=== PATIENT | female | born 1995 | race African-American/Black ===

== ENCOUNTER 2022-03-12 13:45 | Day surgery (SDC) | payer OTHER | END 2022-03-12 16:05 | disposition home or self-care (01) | LOC: CSHLD/OP 13:45 | PROVIDERS: ATTEND Student in an Organized Health Care Education/Training Program | DX: Z01.89 Encounter for other specified special examinations (principal); O99.213 Obesity complicating pregnancy, third trimester; E66.01 Morbid (severe) obesity due to excess calories; O24.410 Gestational diabetes mellitus in pregnancy, diet controlled; O99.333 Smoking (tobacco) complicating pregnancy, third trimester; F17.210 Nicotine dependence, cigarettes, uncomplicated; Z3A.34 34 weeks gestation of pregnancy | CPT/HCPCS: 99281 ==

== ENCOUNTER 2022-03-19 09:20 | Day surgery (SDC) | payer OTHER ==
[2022-03-19 09:54] VITALS: BMI 49.8
[2022-03-19] MEDS ORDERED: hydrALAZINE 20 MG/ML VIAL SLOW IVP PRN (11:35)
[2022-03-19 12:30] LABS: #Eosinphils 0.2 10x3/uL (0.0-0.5); #Monocytes 0.7 10x3/uL (0.0-1.1); #Neutrophils 7.4 10x3/uL (1.5-8.4); %Basophils 0.4 % (0.0-2.0); %Eosinophils 1.9 % (0.0-6.0); %Lymphocytes 21.8 % (18.0-47.0); %Monocytes 6.9 % (0.0-10.0); %Neutrophils 68.5 % (40.0-75.0); Hemoglobin 10.2 g/dL (12.0-15.5); Mean Corpuscular HGB CONC 31.6 g/dL (32.0-36.0); Mean Corpuscular Hemoglobin 25.2 pg (27.0-33.0); Mean Corpuscular Volume 79.8 fl (81.6-98.3); Mean Platelet Volume 10.7 fl (7.4-10.4); Platelet Count 280 10x3/uL (150-450); RBC Distribution Width 15.3 % (11.5-14.5); Red Blood Cell (RBC) Count 4.05 10x6/uL (3.90-5.03); White Blood Cell (WBC) Count 10.8 10x3/uL (3.5-10.5)
[2022-03-19 12:45] LABS: ALT (SGPT) 7 U/L (8-55); AST (SGOT) 10 U/L (5-34); Alkaline Phosphatase 82 U/L (40-110); Anion Gap 12 mmol/L (10-20); BUN (Urea Nitrogen) 7 mg/dL (7.0-18.7); Bilirubin, Total 0.4 mg/dL (0.2-1.2); Calc. Creatinine Clearance 317 mL/min (70-130); Calcium 8.7 mg/dL (7.8-10.44); Carbon Dioxide 23 mmol/L (22-29); Chloride 105 mmol/L (98-107); Estimated GFR 128; Globulin 3.4 g/dL (2.4-3.5); Glucose 92 mg/dL (70-105); Potassium 3.8 mmol/L (3.5-5.1); Protein, Total 6.4 g/dL (6.0-8.3); Sodium 136 mmol/L (136-145)
[2022-03-19 14:49] LABS: Amphetamine Not Detected (NotDetected); Barbiturates Screen Not Detected (NotDetected); Benzodiazepine Screen Not Detected (NotDetected); Cocaine Metabolite Screen Not Detected (NotDetected); Methadone Not Detected (NotDetected); Methamphetamine Not Detected (NotDetected); Opiate Screen Not Detected (NotDetected); Oxycodone Screen Not Detected (NotDetected); Phencyclidine (PCP) Not Detected (NotDetected); THC/Cannabinoid Screen Not Detected (NotDetected); Tricyclic Screen Not Detected (NotDetected)
== END 2022-03-19 14:47 | disposition home or self-care (01) ==
LOC: CSHLD/OP 09:20
PROVIDERS: ATTEND Student in an Organized Health Care Education/Training Program
DX: O99.891 Other specified diseases and conditions complicating pregnancy (principal); R03.0 Elevated blood-pressure reading, without diagnosis of hypertension; O99.213 Obesity complicating pregnancy, third trimester; E66.01 Morbid (severe) obesity due to excess calories; O24.419 Gestational diabetes mellitus in pregnancy, unspecified control; O09.33 Supervision of pregnancy with insufficient antenatal care, third trimester; O99.333 Smoking (tobacco) complicating pregnancy, third trimester; F17.210 Nicotine dependence, cigarettes, uncomplicated; Z3A.35 35 weeks gestation of pregnancy; Z79.82 Long term (current) use of aspirin
CPT/HCPCS: 36415; 76816; 76819; 80053; 80306; 82570; 84156; 85025; 99283

== ENCOUNTER 2022-04-02 12:17 | Day surgery (SDC) | payer OTHER ==
[2022-04-02 13:10] VITALS: BMI 50.1
[2022-04-02] MEDS ORDERED: hydrALAZINE 20 MG/ML VIAL SLOW IVP PRN (13:15)
[2022-04-02 13:59] LABS: Creatinine, Urine 79.97 mg/dL (47-110)
[2022-04-02 14:34] LABS: SARS-CoV-2 NAA Rapid Test Not Detected (NotDetected)
[2022-04-02 15:02] LABS: #Eosinphils 0.2 10x3/uL (0.0-0.5); #Monocytes 0.5 10x3/uL (0.0-1.1); #Neutrophils 6.9 10x3/uL (1.5-8.4); %Basophils 0.2 % (0.0-2.0); %Eosinophils 1.8 % (0.0-6.0); %Lymphocytes 19.4 % (18.0-47.0); %Monocytes 5.6 % (0.0-10.0); %Neutrophils 72.6 % (40.0-75.0); Mean Corpuscular HGB CONC 31.3 g/dL (32.0-36.0); Mean Corpuscular Hemoglobin 24.9 pg (27.0-33.0); Mean Corpuscular Volume 79.4 fl (81.6-98.3); Mean Platelet Volume 10.5 fl (7.4-10.4); Platelet Count 269 10x3/uL (150-450); RBC Distribution Width 15.6 % (11.5-14.5); Red Blood Cell (RBC) Count 4.02 10x6/uL (3.90-5.03); White Blood Cell (WBC) Count 9.5 10x3/uL (3.5-10.5)
[2022-04-02 15:15] LABS: ALT (SGPT) 11 U/L (8-55); AST (SGOT) 12 U/L (5-34); Albumin 2.9 g/dL (3.5-5.0); Alkaline Phosphatase 90 U/L (40-110); Anion Gap 12 mmol/L (10-20); BUN (Urea Nitrogen) 11 mg/dL (7.0-18.7); Bilirubin, Total 0.3 mg/dL (0.2-1.2); Calc. Creatinine Clearance 278 mL/min (70-130); Calcium 9.2 mg/dL (7.8-10.44); Carbon Dioxide 23 mmol/L (22-29); Chloride 104 mmol/L (98-107); Estimated GFR 123; Globulin 3.5 g/dL (2.4-3.5); Glucose 136 mg/dL (70-105); Potassium 4.1 mmol/L (3.5-5.1); Protein, Total 6.4 g/dL (6.0-8.3); Sodium 135 mmol/L (136-145)
== END 2022-04-02 20:45 | disposition home or self-care (01) ==
LOC: CSHLD/OP 12:17
PROVIDERS: ATTEND Student in an Organized Health Care Education/Training Program
DX: O16.3 Unspecified maternal hypertension, third trimester (principal); Z3A.36 36 weeks gestation of pregnancy; O99.333 Smoking (tobacco) complicating pregnancy, third trimester; F17.210 Nicotine dependence, cigarettes, uncomplicated; O99.513 Diseases of the respiratory system complicating pregnancy, third trimester; J45.909 Unspecified asthma, uncomplicated; O24.419 Gestational diabetes mellitus in pregnancy, unspecified control; O99.213 Obesity complicating pregnancy, third trimester; E66.9 Obesity, unspecified; Z68.43 Body mass index [BMI] 50.0-59.9, adult; Z79.82 Long term (current) use of aspirin; Z79.899 Other long term (current) drug therapy; Z20.822 Contact with and (suspected) exposure to COVID-19
CPT/HCPCS: 36415; 76816; 76819; 80053; 82570; 84156; 85025; 99285; U0002

== ENCOUNTER 2022-04-09 17:19 | Inpatient (IN) | payer OTHER ==
[2022-04-09 18:37] VITALS: BMI 50.1
[2022-04-09] MEDS ORDERED: Ondansetron PF 4 MG/2 ML Vial IVP PRN (19:17)
[2022-04-09] MEDS ORDERED: hydrALAZINE 20 MG/ML VIAL SLOW IVP PRN (19:17)
[2022-04-09] MEDS ORDERED: Lidocaine 1% (PF) 30 ML VIAL SC PRN (19:17)
[2022-04-09] MEDS ORDERED: Promethazine HCl 25 MG/ML VIAL IM PRN (19:17)
[2022-04-09] MEDS ORDERED: Acetaminophen 500 MG TAB PO PRN (19:23)
[2022-04-09] MEDS ORDERED: Ibuprofen 800 MG TAB PO PRN (19:23)
[2022-04-09] MEDS ORDERED: Misoprostol 200 MCG TAB PR PRN (19:23)
[2022-04-09] MEDS ORDERED: Penicillin G Potassium 5 MILL.UNITS in Sodium Chloride 0.9% 100 ML IVPB SCH (19:30)
[2022-04-09] MEDS ORDERED: NS w/ Oxytocin 30 units 500 ML IV SCH ×2 (19:30)
[2022-04-09 19:46] LABS: Hemoglobin 10.6 g/dL (12.0-15.5); Mean Corpuscular HGB CONC 31.3 g/dL (32.0-36.0); Mean Corpuscular Hemoglobin 24.7 pg (27.0-33.0); Mean Corpuscular Volume 78.8 fl (81.6-98.3); Mean Platelet Volume 10.9 fl (7.4-10.4); Platelet Count 295 10x3/uL (150-450); RBC Distribution Width 15.9 % (11.5-14.5); White Blood Cell (WBC) Count 10.4 10x3/uL (3.5-10.5)
[2022-04-09] MEDS ORDERED: Misoprostol 100 MCG TAB ONE (19:53)
[2022-04-09 20:05] LABS: Hep B Surf Ag Non-Reactive S/CO (NonReactive); Syphilis Antibody Nonreactive (Nonreactive); Syphilis Antibody Index 0.05 S/CO (<1.00 Non-Reactive)
[2022-04-09] MEDS ORDERED: Lactated Ringer's 1,000 ML IV SCH (20:15)
[2022-04-09] MEDS ORDERED: Misoprostol 100 MCG TAB VAG SCH (20:15)
[2022-04-09 20:29] LABS: ALT (SGPT) 11 U/L (8-55); AST (SGOT) 14 U/L (5-34); Alkaline Phosphatase 98 U/L (40-110); Anion Gap 14 mmol/L (10-20); BUN (Urea Nitrogen) 10 mg/dL (7.0-18.7); Bilirubin, Total 0.3 mg/dL (0.2-1.2); Calc. Creatinine Clearance 355 mL/min (70-130); Calcium 8.5 mg/dL (7.8-10.44); Carbon Dioxide 17 mmol/L (22-29); Chloride 109 mmol/L (98-107); Estimated GFR 131; Globulin 2.9 g/dL (2.4-3.5); Glucose 109 mg/dL (70-105); Potassium 4.2 mmol/L (3.5-5.1); Protein, Total 5.9 g/dL (6.0-8.3); Sodium 136 mmol/L (136-145)
[2022-04-09 22:49] LABS: Hemoglobin A1c 6.2 % (4.0-6.0)
[2022-04-09 22:55] LABS: SARS-CoV-2 NAA Rapid Test Not Detected (NotDetected)
[2022-04-10] MEDS: Penicillin G 2.5 MILL.units 2.5 MILL.UNITS in Premix Bag 1 BAG IVPB SCH ×3 (00:09→11:03)
[2022-04-10 01:24] LABS: Creatinine, Urine 94.67 mg/dL (47-110)
[2022-04-10] MEDS ORDERED: Albuterol Sulfate 2.5 mg/3 ml Neb NEB PRN (07:05)
[2022-04-10] MEDS ORDERED: HumaLOG 300 UNITS/3 ML VIAL SC PRN (07:08)
[2022-04-10] MEDS ORDERED: Dextrose 5% in Water 1,000 ML IV PRN (07:08)
[2022-04-10] MEDS ORDERED: Dextrose 50% Abboject 50 ML SYRINGE SLOW IVP PRN (07:08)
[2022-04-10] MEDS ORDERED: Aspirin Chewable 81 MG TAB PO SCH (09:00)
[2022-04-10] MEDS ORDERED: Fentanyl 2 mcg/Bup 0.1% Cadd 100 ML ONE (09:10)
[2022-04-10] MEDS ORDERED: ePHEDrine Sulfate 50 MG/10 ML VIAL SLOW IVP PRN (10:23)
[2022-04-10] MEDS ORDERED: Acetaminophen 325 MG TAB PO PRN (10:23)
[2022-04-10] MEDS ORDERED: Ondansetron PF 4 MG/2 ML Vial IVP PRN (10:23)
[2022-04-10] MEDS ORDERED: Lactated Ringer's 500 ML IV PRN (10:23)
[2022-04-10] MEDS ORDERED: diphenhydrAMINE 50 MG/ML VIAL IVP PRN (10:23)
[2022-04-10] MEDS ORDERED: Naloxone HCl 0.4 mg/ml Vial IVP PRN ×2 (10:23)
[2022-04-10] MEDS ORDERED: Moisturizing Cream (Eucerin) 113 GM JAR TOP PRN (10:23)
[2022-04-10] MEDS ORDERED: Promethazine HCl 25 MG/ML VIAL IM PRN (10:23)
[2022-04-10] MEDS ORDERED: Fentanyl 2 mcg/Bupivacaine 0.1% Cassette 100 ML EPIDURAL SCH (10:30)
[2022-04-10] MEDS ORDERED: Communication Order-Pharmacy FS SCH (10:30)
[2022-04-10] MEDS ORDERED: Tranexamic Acid 1,000 MG/10 ML VIAL ONE (11:30)
[2022-04-10] MEDS ORDERED: Milk Of Magnesia 30 ML UDCUP PO PRN (15:14)
[2022-04-10] MEDS ORDERED: hydrALAZINE 20 MG/ML VIAL SLOW IVP PRN (15:14)
[2022-04-10] MEDS ORDERED: Boostrix 0.5 ML (Tdap) VIAL IM ONE (15:14)
[2022-04-10] MEDS ORDERED: Bisacodyl 10 MG SUPP PR PRN (15:14)
[2022-04-10] MEDS ORDERED: Benzocaine-Menthol 82.5 ML CAN TOP PRN (15:14)
[2022-04-10] MEDS ORDERED: Lanolin Ointment 7 GM TUBE TOP PRN (15:14)
[2022-04-10 15:15] LABS: pH (Cord, venous) 7.344 (7.250-7.350)
[2022-04-10] MEDS ORDERED: Ferrous Sulfate 325 MG TAB PO SCH (17:00)
[2022-04-10] MEDS: Prenatal Vitamin 1 TAB PO SCH (18:23)
[2022-04-10] MEDS: Ibuprofen 800 MG TAB PO PRN (20:08)
[2022-04-10] MEDS: Docusate 100 MG CAP PO SCH (20:08)
[2022-04-11 05:01] LABS: #Eosinphils 0.1 10x3/uL (0.0-0.5); #Monocytes 0.7 10x3/uL (0.0-1.1); #Neutrophils 8.3 10x3/uL (1.5-8.4); %Basophils 0.3 % (0.0-2.0); %Eosinophils 1.1 % (0.0-6.0); %Lymphocytes 21.6 % (18.0-47.0); %Monocytes 6.3 % (0.0-10.0); %Neutrophils 70.4 % (40.0-75.0); Hemoglobin 9.5 g/dL (12.0-15.5); Mean Corpuscular HGB CONC 30.3 g/dL (32.0-36.0); Mean Corpuscular Volume 79.3 fl (81.6-98.3); Mean Platelet Volume 10.7 fl (7.4-10.4); Platelet Count 249 10x3/uL (150-450); RBC Distribution Width 15.7 % (11.5-14.5); Red Blood Cell (RBC) Count 3.96 10x6/uL (3.90-5.03); White Blood Cell (WBC) Count 11.7 10x3/uL (3.5-10.5)
[2022-04-11] MEDS: Ibuprofen 800 MG TAB PO PRN ×2 (05:40→13:50)
[2022-04-11] MEDS ORDERED: metFORMIN 500 MG TAB PO SCH (08:00)
[2022-04-11] MEDS: Penicillin G 2.5 MILL.units 2.5 MILL.UNITS in Premix Bag 1 BAG IVPB SCH (08:10)
[2022-04-11] MEDS: Prenatal Vitamin 1 TAB PO SCH (09:07)
[2022-04-11] MEDS: Docusate 100 MG CAP PO SCH (09:07)
[2022-04-11 11:18] VITALS: BP 129/63; TEMP 98.2
== END 2022-04-11 17:50 | disposition home or self-care (01) | DRG 807 ==
LOC: CSHLD 17:19 → CSHPP 04-10 17:18
PROVIDERS: ADMIT Emergency Medicine; ATTEND Emergency Medicine
PROC: 10E0XZZ Delivery of Products of Conception, External Approach (ICD-10-PCS; principal; 2022-04-10)
PROC: 10907ZC Drainage of Amniotic Fluid, Therapeutic from Products of Conception, Via Natural or Artificial Opening (ICD-10-PCS; 2022-04-10)
PROC: 10H07YZ Insertion of Other Device into Products of Conception, Via Natural or Artificial Opening (ICD-10-PCS; 2022-04-10)
PROC: 3E033VJ Introduction of Other Hormone into Peripheral Vein, Percutaneous Approach (ICD-10-PCS; 2022-04-10)
DX: O13.4 Gestational [pregnancy-induced] hypertension without significant proteinuria, complicating childbirth (principal); Z37.0 Single live birth; Z20.822 Contact with and (suspected) exposure to COVID-19; Z3A.38 38 weeks gestation of pregnancy; O24.425 Gestational diabetes mellitus in childbirth, controlled by oral hypoglycemic drugs; Z79.84 Long term (current) use of oral hypoglycemic drugs; D50.9 Iron deficiency anemia, unspecified; O99.02 Anemia complicating childbirth; E66.01 Morbid (severe) obesity due to excess calories; O99.214 Obesity complicating childbirth; Z87.891 Personal history of nicotine dependence; O77.0 Labor and delivery complicated by meconium in amniotic fluid; O69.81X0 Labor and delivery complicated by cord around neck, without compression, not applicable or unspecified; O69.2XX0 Labor and delivery complicated by other cord entanglement, with compression, not applicable or unspecified; J45.909 Unspecified asthma, uncomplicated; O99.52 Diseases of the respiratory system complicating childbirth; Z79.82 Long term (current) use of aspirin; Z79.899 Other long term (current) drug therapy; Z91.14 Patient's other noncompliance with medication regimen
CPT/HCPCS: 36415; 36416; 51702; 80053; 82570; 82805; 83036; 84156; 85025; 85027; 86762; 86780; 86850; 86900; 86901; 87077; 87081; 87340; 88307; J2540; J2590; J3490; U0002

== ENCOUNTER 2023-04-07 12:36 | Emergency (ER) | payer OTHER ==
[2023-04-07] MEDS ORDERED: Bicillin LA 1.2 MILLION UNITS/2 ML SYRINGE IM SCH (14:45)
[2023-04-07] MEDS ORDERED: Dexamethasone 4 MG TAB ONE (14:53)
== END 2023-04-07 15:00 | disposition home or self-care (01) ==
LOC: CSHERS 12:36
DX: J02.0 Streptococcal pharyngitis (principal)
CPT/HCPCS: 87430; 96372; 99283; J0561; J8540

== ENCOUNTER 2023-09-03 22:29 | Emergency (ER) | payer SELFPAY ==
[2023-09-03 23:47] LABS: SARS-CoV-2 NAA Rapid Test Not Detected (NotDetected)
[2023-09-03] MEDS ORDERED: Dexamethasone 10 MG/ML VIAL ONE (23:58)
[2023-09-04] MEDS ORDERED: Ibuprofen 100 MG/5 ML UDCUP ONE
== END 2023-09-04 00:17 | disposition home or self-care (01) ==
LOC: CSHERS 22:29
DX: J02.9 Acute pharyngitis, unspecified (principal); J45.909 Unspecified asthma, uncomplicated; F17.210 Nicotine dependence, cigarettes, uncomplicated
CPT/HCPCS: 87081; 87430; 96372; 99283; J1100